=== PATIENT | male | born 1970 | race Hispanic/Latino ===

== ENCOUNTER 2018-11-04 17:15 | Emergency (ER) | payer BC ==
[2018-11-04 17:20] VITALS: BMI 25.8
--- NOTE | 2018-11-04 17:59 | ED PDOC ---
Arrival/HPI - General Chief Complaint: High Blood Pressure Time Seen by Provider: 11/04/18 17:42 Historian: Patient - History of Present Illness Narrative History of Present Illness (Text): 11/04/18 17:52 48 year old male, with no significant past medical history, presents to the emergency department complaining pain when urinating for the past few days. Patient reports he went to the [facility] today where his urine test was negative, but was told that his blood pressure was elevated. Patient was sent to the ER by [facility] for evaluation. Patient reports he is sexually active without protection. Patient denies any fever, chills, chest pain, shortness of breath, nausea, vomiting, diarrhea, back pain, neck pain, headache, dizziness, or any other complaints. Time/Duration: Other (few days) Symptom Onset: Gradual Symptom Course: Unchanged Activities at Onset: Light Context: Home Past Medical History - Provider Review Nursing Documentation Reviewed: Yes - Infectious Disease Hx of Infectious Diseases: None - Psychiatric Hx Substance Use: No - Surgical History Other/Comment: thumb - Anesthesia Hx Anesthesia: Yes Hx Anesthesia Reactions: No Hx Malignant Hyperthermia: No Family/Social History - Physician Review Nursing Documentation Reviewed: Yes Family/Social History: No Known Family HX Smoking Status: Former Smoker Hx Alcohol Use: Yes Frequency of alcohol use: Few days per week Hx Substance Use: No Allergies/Home Meds Allergies/Adverse Reactions: Allergies No Known Allergies Allergy (Verified 11/04/18 17:20) Home Medications: Home Meds Medication Instructions Recorded Confirmed No Known Home Med 11/04/18 11/04/18 Review of Systems - Physician Review All systems were reviewed & negative as marked: Yes - Review of Systems Constitutional: absent: Fevers, Other (chills) Respiratory: absent: SOB Cardiovascular: absent: Chest Pain Gastrointestinal: absent: Diarrhea, Nausea, Vomiting Genitourinary Male: Dysuria Musculoskeletal: absent: Back Pain, Neck Pain Neurological: absent: Headache, Dizziness Physical Exam Vital Signs Reviewed: Yes Vital Signs Temp Pulse Resp BP Pulse Ox 11/04/18 17:20 98.2 F 88 18 205/106 H 97 Temperature: Afebrile Blood Pressure: Hypertensive Pulse: Regular Respiratory Rate: Normal Appearance: Positive for: Well-Appearing, Non-Toxic, Comfortable Pain Distress: None Mental Status: Positive for: Alert and Oriented X 3 - Systems Exam Head: Present: Atraumatic, Normocephalic Pupils: Present: PERRL Extroacular Muscles: Present: EOMI Conjunctiva: Present: Normal Mouth: Present: Moist Mucous Membranes Neck: Present: Normal Range of Motion Respiratory/Chest: Present: Clear to Auscultation, Good Air Exchange. No: Respiratory Distress, Accessory Muscle Use Cardiovascular: Present: Regular Rate and Rhythm, Normal S1, S2. No: Murmurs Abdomen: No: Tenderness, Distention, Peritoneal Signs Back: Present: Normal Inspection Upper Extremity: Present: Normal Inspection. No: Cyanosis, Edema Lower Extremity: Present: Normal Inspection. No: Edema Neurological: Present: GCS=15, CN II-XII Intact, Speech Normal Skin: Present: Warm, Dry, Normal Color. No: Rashes Psychiatric: Present: Alert, Oriented x 3, Normal Insight, Normal Concentration Medical Decision Making ED Course and Treatment: 11/04/18 18:00 Impression: 48 year old male presents complaining of dysuria for the past few days and elevated blood pressure. no restrepo neuro intact. well aperinag on phone in nad. Plan: -- EKG -- Labs -- Chlamydia/GC RNA, TMA -- Urinalysis -- Reassess and disposition Prior Visits: Notes and results from previous visits were reviewed. Progress Notes: EKG shows NSR at [address]/T wave changes. Interpreted by me. 11/04/18 19:37 On re-evaluation, patient is in no acute distress. I have discussed the results and plan with the patient, who expresses understanding. Patient in agreement with plan to be discharged home. Patient is stable for discharge. Patient was instructed to follow up with physician or return if symptoms worsen or new concerning symptoms arise. 11/04/18 20:48 lasb neg mild elevated lft. notified pt abd soft no ttp. needs outpt fu. b/p imrpoving. suspect underlying essential htn but withh need outpt w/u for etiology of b/p. no e/o of hypertesnive emergency. pt feels well for dc. - Lab Interpretations I have reviewed the lab results: Yes - EKG Interpretation Interpreted by ED Physician: Yes Type: 12 lead EKG - Scribe Statement The provider has reviewed the documentation as recorded by the Nabil Carr Provider Scribe Attestation: All medical record entries made by the Scribe were at my direction and personally dictated by me. I have reviewed the chart and agree that the record accurately reflects my personal performance of the history, physical exam, medical decision making, and the department course for this patient. I have also personally directed, reviewed, and agree with the discharge instructions and disposition. Disposition/Present on Arrival - Present on Arrival Any Indicators Present on Arrival: No History of DVT/PE: No History of Uncontrolled Diabetes: No Urinary Catheter: No History of Decub. Ulcer: No History Surgical Site Infection Following: None - Disposition Have Diagnosis and Disposition been Completed?: Yes Diagnosis: Hypertension, Dysuria Disposition: HOME/ ROUTINE Disposition Time: 20:00 Condition: STABLE Discharge Instructions (ExitCare): High Blood Pressure in Adults, Dysuria, Adult (DC), Low Salt Diet Additional Instructions: follow up outpatient return to any er with worsening. please discuss your lab tests with [facility] doctor. you will need further testing and management as an outpatient. Forms: [employer] (Citizen [place])
[2018-11-04 18:35] LABS: BASO # 0.02 K/mm3 (0.0-2.0); BASO % 0.3 % (0.0-3.0); EOS % 0.7 % (1.5-5.0); HEMOGLOBIN 17.2 g/dL (14.0-18.0); LYMPH # 1.1 (1.2-3.4); LYMPH % 17.3 % (22.0-35.0); MEAN CELL VOLUME 90.7 fl (80.0-105.0); MEAN CORPUSCULAR HEMOGLOBIN 32.6 pg (25.0-35.0); MEAN CORPUSCULAR HGB CONC 35.9 g/dl (31.0-37.0); MEAN PLATELET VOLUME 9.5 fl (7.0-11.0); MONO # 0.7 (0.1-0.6); MONO % 11.4 % (1.0-6.0); RBC 5.28 10^6/uL (3.5-6.1); RED CELL DISTRIBUTION WIDTH 12.5 % (11.5-14.5); WHITE BLOOD COUNT 6.1 10^3/uL (4.5-11.0)
[2018-11-04 18:43] LABS: ALB/GLOB RATIO 1.1 (1.1-1.8); ALT/SGPT 133 U/L (7-56); AST/SGOT 92 U/L (17-59); BLOOD UREA NITROGEN 13 mg/dL (7-21); CALCIUM 10.2 mg/dL (8.4-10.5); GFR NON-AFRICAN AMERICAN > 60
[2018-11-04 18:45] LABS: INR 1.05; PROTHROMBIN TIME 11.7 SECONDS (9.4-12.5)
[2018-11-04 18:46] LABS: PARTIAL THROMBOPLASTIN TIME 34.4 Seconds (26.9-38.3)
[2018-11-04 18:54] LABS: TROPONIN I < 0.01 ng/mL
[2018-11-04 19:25] LABS: URINE BILIRUBIN NEGATIVE (NEGATIVE); URINE BLOOD NEGATIVE (NEGATIVE); URINE GLUCOSE (UA) NEGATIVE (NEGATIVE); URINE LEUKOCYTE ESTERASE NEGATIVE Leu/uL (NEGATIVE); URINE PROTEIN NEGATIVE mg/dL (<30 mg/dL); URINE UROBILINOGEN 0.2 E.U./dL (<1 E.U./dL)
[2018-11-04 19:29] LABS: URINE APPEARANCE CLEAR (CLEAR); URINE COLOR LIGHT YELLOW (YELLOW)
[2018-11-04 19:56] VITALS: TEMP 98.5
[2018-11-04 20:31] VITALS: BP 174/112; O2SAT 100
[2018-11-04 20:39] VITALS: PULSE 79; RESP 18
--- NOTE | 2018-11-04 21:38 | CARD ---
APPROVED REPORT Date of service: 11/04/2018 EKG Measurement Heart [id number] <Conclusion> Poor data quality, interpretation may be adversely affected Normal sinus rhythm with sinus arrhythmia Possible Inferior infarct, age undetermined Possible Anterior infarct, age undetermined CCR Abnormal ECG
== END 2018-11-04 20:37 | disposition home or self-care (01) ==
LOC: ED 17:15
DX: I10 Essential (primary) hypertension (principal); R30.0 Dysuria; Z87.891 Personal history of nicotine dependence
CPT/HCPCS: 80053; 81003; 82550; 83615; 83735; 84484; 85025; 85610; 85730; 93005; 96374; 99285; J0360